=== PATIENT | female | born 1980 | race Caucasian/White ===

== ENCOUNTER → 2018-09-29 11:23 | Outpatient (CLI) | payer OTHER, SELFPAY | PROVIDERS: Family Provider Nurse Practitioner Family; PCP Nurse Practitioner Family; Visit Provider Physician Assistant | DX: R30.0 Dysuria (principal) | CPT/HCPCS: 87077; 87086; 87186 ==

== ENCOUNTER → 2018-10-13 16:16 | Outpatient (CLI) | payer SELFPAY | PROVIDERS: Family Provider Nurse Practitioner Family; PCP Nurse Practitioner Family; Visit Provider Physician Assistant | DX: T14.8XXA Other injury of unspecified body region, initial encounter (principal) | CPT/HCPCS: 87070; 87075; 87205; 87252 ==

== ENCOUNTER → 2019-05-22 11:51 | Outpatient (CLI) | payer OTHER, MEDICAID, SELFPAY ==
--- NOTE | 2019-05-22 | DI.US.S_ITS ---
PROCEDURE: US PELVIC COMPLETE INDICATIONS: DYSMENORRHEA, UNSPECIFIED TECHNIQUE: Real-time scanning was performed of the pelvic organs, with image documentation. Additional endovaginal scanning was necessary due to incomplete visualization of the adnexal and endometrial structures by transabdominal scanning. COMPARISON: None. FINDINGS: Transabdominal scanning: Limited scanning through the kidneys shows no hydronephrosis. No pathologic free abdominal or pelvic fluid. Endovaginal scanning: Uterus: Uterus is normal in size at 10.8 x 5.9 x 6.7 cm. The endometrium measures 15 mm in combined thickness. 1.2 x 0.6 x 1.3 cm isoechoic endometrial lesion, without internal vascularity, possibly small polyp, although other etiologies such as submucosal fibroid, blood clot in the differential. Ovaries: Right ovary measures 3.4 x 2.7 2.0 cm and is unremarkable. Left ovary is not well-visualized sonographically. IMPRESSION: 1.3 cm endometrial focus, possibly polyp with differential as listed above. Left ovary not well-visualized sonographically. Dictated by: Dre Saavedra M.D. on 05/22/2019 at 15:30 Approved by: Dre Saavedra M.D. on 05/22/2019 at 15:34
== END ==
PROVIDERS: PCP Nurse Practitioner Family; Visit Provider Nurse Practitioner Family
DX: N94.6 Dysmenorrhea, unspecified (principal)
CPT/HCPCS: 76830; 76856

== ENCOUNTER → 2020-11-01 14:20 | Outpatient (CLI) | payer OTHER, MEDICAID, SELFPAY | PROVIDERS: PCP Nurse Practitioner Family; Visit Provider Physician Assistant | DX: N34.3 Urethral syndrome, unspecified (principal) | CPT/HCPCS: 87077; 87086; 87186 ==

== ENCOUNTER → 2020-11-05 10:06 | Outpatient (CLI) | payer OTHER, MEDICAID, SELFPAY ==
--- NOTE | 2020-11-05 | DI.US.S_ITS ---
PROCEDURE: US RENAL COMPLETE INDICATIONS: Dysuria Sacrococcygeal disorders TECHNIQUE: Real-time scanning was performed of the kidneys and bladder, with image documentation. COMPARISON: [facility], CT, ABD/PELVIS W/CON (PNL), 01/11/2014, 10:02. [facility], US, US PELVIC COMPLETE, 05/22/2019, 12:04. FINDINGS: Kidneys: Kidneys are normal in size. Right kidney measures of 10 cm long; left kidney measures 10.5 cm long. Right renal cortical thickness is 1.1 cm; left renal cortical thickness is 1.9 cm. Renal cortical echotexture is normal. No hydronephrosis or nephrolithiasis. No suspicious solid mass lesions. Bladder: Pre-void bladder volume is 682 mL. Post-void residual is 0 mL. Pre-void images demonstrate no intraluminal masses or stones. On pre-void images, both ureteral jets are noted with color Doppler interrogation. (Of note, ureteral jets may not be detectable in up to 25% of cases due to insufficient differences in specific gravity between ureteral and bladder urine). Miscellaneous: No free pelvic fluid. Additional, dedicated ultrasound scanning is performed at the area of the right medial lumbar lump. No focal ultrasound abnormalities are seen within this region. The liver demonstrates moderately increased echogenicity. IMPRESSION: Normal appearing kidneys, without hydronephrosis. No postvoid residual. No ultrasound abnormalities can be seen at the area of the lump involving the right medial lumbar area. Fatty liver infiltration is incidentally noted. Dictated by: Mayo Skaggs M.D. on 11/05/2020 at 10:28 Approved by: Mayo Skaggs M.D. on 11/05/2020 at 10:31
== END ==
PROVIDERS: PCP Nurse Practitioner Family; Referring Provider Nurse Practitioner Family; Visit Provider Nurse Practitioner Family
DX: R30.0 Dysuria (principal); M53.3 Sacrococcygeal disorders, not elsewhere classified; K76.0 Fatty (change of) liver, not elsewhere classified
CPT/HCPCS: 76770